=== PATIENT | male | born 1990 | race Two or more races ===

== ENCOUNTER 2023-04-22 16:18 | Emergency (ER) | payer OTHER ==
[~2023-04-22] VITALS: Ht 193 cm; Wt 113.4 kg
[2023-04-22] MEDS ORDERED: KETOROLAC TROMETHAMINE INJ 30 MG/ML VIAL ONE (17:14)
[2023-04-22] MEDS ORDERED: ONDANSETRON 4 MG TAB.RAPDIS ONE (17:15)
[2023-04-22] MEDS: KETOROLAC TROMETHAMINE INJ 30 MG/ML VIAL IM ONE (17:19)
[2023-04-22] MEDS: ONDANSETRON 4 MG TAB.RAPDIS SL ONE (17:20)
[2023-04-22] MEDS ORDERED: IBUP-1955 PO (18:04)
[2023-04-22] MEDS ORDERED: ONDA4TAB5 PO (18:04)
[2023-04-22] MEDS ORDERED: BENZ-13 PO (18:04)
[2023-04-22 18:54] VITALS: BP 135/75; TEMP 99.9; O2SAT 98
== END 2023-04-22 18:54 | disposition home or self-care (01) ==
LOC: ER 16:45
DX: M79.10 Myalgia, unspecified site (principal); R50.9 Fever, unspecified; R05.9 Cough, unspecified; Z79.899 Other long term (current) drug therapy; Z20.822 Contact with and (suspected) exposure to COVID-19; Z60.2 Problems related to living alone
CPT/HCPCS: 99283; 87426; 96372; 87804 ×2; J1885; Q0162; C9803